=== PATIENT | female | born 1955 | race Caucasian/White ===

== ENCOUNTER 2020-06-27 06:10 | Day surgery (SDC) | payer OTHER ==
[2020-06-19 12:02] VITALS: BMI 20.9
[2020-06-27] MEDS ORDERED: BACITRACIN 15 GM TUBE TOPICAL OINTMENT ONE (07:19)
[2020-06-27] MEDS ORDERED: EPINEPHrine/PF 1 MG/1 ML (1:1,000) AMPULE ONE ×2 (07:19→08:18)
[2020-06-27] MEDS ORDERED: LIDOCAINE HCL 1%, 10 MG/ML (20ML VIAL) ONE ×2 (07:19→07:24)
[2020-06-27] MEDS ORDERED: GENTAMICIN SO4 80 MG/2 ML VIAL ONE (07:19)
[2020-06-27] MEDS ORDERED: ceFAZolin SODIUM 1 GM VIAL ONE (07:19)
[2020-06-27] MEDS ORDERED: LIDOCAINE 1%/EPI 1:100000 (20 ML MULTI DOSE VIAL) ONE ×2 (07:23→08:04)
[2020-06-27] MEDS ORDERED: PROPOFOL 20 ML ONE ×5 (07:27→09:11)
[2020-06-27] MEDS ORDERED: ROCURONIUM BROMIDE 50 MG/5 ML VIAL ONE (07:28)
[2020-06-27] MEDS ORDERED: MIDAZOLAM HCL 2 MG/2 ML SINGLE DOSE VIAL ONE (07:28)
[2020-06-27] MEDS ORDERED: LIDOCAINE 1%/EPI 1:100000 (50 ML MULTI DOSE VIAL) NR ONE (08:26)
[2020-06-27] MEDS ORDERED: EPINEPHrine/PF 1 MG/1 ML (1:1,000) AMPULE IM ONE ×2 (09:01)
[2020-06-27] MEDS ORDERED: LIDOCAINE HCL 1%, 10 MG/ML (20ML VIAL) INF ONE (09:01)
[2020-06-27] MEDS ORDERED: NEOSTIGMINE METHYLSULFATE 0.5 MG/ML - 10 ML MDV ONE (09:07)
[2020-06-27] MEDS ORDERED: ONDANSETRON 4 MG/2 ML VIAL ONE (09:39)
--- NOTE | 2020-06-27 09:40 | OP ---
Operative Note - Note: Operative Date: 06/27/20 Pre-Operative Diagnosis: left breast cancer with asymmetry of breast s/p lumpectomy Operation: Bilateral breast reconstruction with implants and subcutaneous tissue transfer from abdomen and flanks Post-Operative Diagnosis: Same as Pre-op Surgeon: Adithya Natarajan Drug Counselor: Meagan Mera Anesthesiologist/CLASSROOM AIDE: Andrae Díaz Anesthesia: General, Local Estimated Blood Loss (mls): 20 Fluid Volume Replaced (mls): 900 Operative Report Dictated: Yes
[2020-06-27] MEDS ORDERED: ONDANSETRON 4 MG/2 ML VIAL IVPUSH PRN (09:41)
[2020-06-27] MEDS ORDERED: oxyCODONE HCL 5 MG TABLET PO PRN (09:41)
--- NOTE | 2020-06-27 09:41 | SURG ---
Surgery Automotive Welder Note Automotive Welder: Meagan Mera PA-C Date of Service: 06/27/20 Diagnosis: left breast cancer with asymmetry of breast s/p lumpectomy Procedure: Bilateral breast reconstruction with implants and subcutaneous tissue transfer from abdomen and flank I was present for the entirety of the operative procedure. For further detail, please refer to operative report. Visit type - Case Type Case Type: Scheduled - Emergency Emergency Visit: No - New patient This patient is new to me today: Yes Date on this admission: 06/27/20
[2020-06-27] MEDS ORDERED: LACTATED RINGERS SOLUTION 1,000 ML IV SCH (09:45)
[2020-06-27 11:25] VITALS: TEMP 98.2
[2020-06-27 13:47] VITALS: BP 128/59; PULSE 66
--- NOTE | 2020-06-27 17:19 | OP ---
DATE OF OPERATION: 06/27/2020 SURGEON: Chasity Natarajan MD. DRAW FURNACE TENDER: AJAY Costello. PREOPERATIVE DIAGNOSIS: 1. 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 2. Asymmetry of reconstructed chest wall. 3. Mechanical complication of prior surgery. POSTOPERATIVE DIAGNOSIS: 1. 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 2. Asymmetry of reconstructed chest wall. 3. Mechanical complication of prior surgery. PROCEDURE: 1. Bilateral breast reconstruction with other technique, 19217-80. 2. Insertion of right breast implant for reconstructive purposes. 3. Insertion of left breast implant for reconstruction. OPERATIVE INDICATION: The patient is a woman who underwent mastectomy prior to this incident had presented previously with gross asymmetry of the reconstructed chest wall. The patient required the above procedures for symmetry and reconstruction of her breasts. The risks and benefits of surgical versus nonsurgical alternatives as well as well as material complications were described to the patient on multiple occasions including no surgery. She agreed to the planned procedure. All questions were asked and answered today in the holding area, where she was marked in the standing position for outline of the procedure. OPERATIVE PROCEDURE IN DETAIL: Patient was taken to the operating room, and after induction of general anesthesia in the supine position, both arms were extended and padded, Venodyne boots were placed. Then the markings confirmed both on the chest wall and the abdominal wall for harvest of reconstructed tissue. Once prepping and draping and timeout had occurred, attention was turned to the breasts themselves. The previous scar in the left breast from mastectomy was injected with 1% local lidocaine anesthesia with 1:100,000 epinephrine and the incisions were planned insertion of silicone breast implant through an inframammary approach was measured out and marked. These were also injected with 1% local lidocaine anesthesia with 1:100,000 epinephrine. Once this was accomplished, attention was turned to the left breast. Anesthesia was made down to the skin and subcutaneous tissue in the inframammary incision. This was then carried through the subcutaneous tissues down to the underlying chest wall. Dissection was then carried out superiorly along the chest wall in the subpectoral space elevating the pectoralis major muscles to accept a new device in the subpectoral plane. Hemostasis was meticulously obtained and the dissection was carried up to the 2nd rib superiorly to the anterior axillary line and down to the inframammary fold, which was lowered. The prior history of radiation therapy caused deformity of the left breast implant. At this point, the breasts were temporized and attention turned to the abdominal wall. Donor site incisions were planned on the left and right aspects of the abdominal wall; after injection of local anesthesia, dissection was carried down through the skin and subcutaneous tissue down to underlying fascia. This was carried along the anterior rectus fascia superiorly and laterally over the external oblique fascia, harvesting reconstructed tissue for purposes of symmetry and contour. This tissue which had been harvested was transferred to the back table, washed, cleansed and prepared for reconstruction. Attention was then turned back to the right breast; the exact same procedure as carried out on the right breast by making the inframammary incision, developing a subpectoral pocket and creating space for reconstruction. At this point, an implant was chosen after previous consultation with the patient. At this point, a Sientra smooth round moderate plus profile implant style 107 of 355 mL was placed into the right breast pocket. Good shape and contour was seen, and then attention was turned to the opposite left breast. The same implant was chosen for the left breast and also placed into the subpectoral pocket after achieving hemostasis on both sides. The implant and pocket were copiously irrigated with triple antibiotic solution and Betadine dissection. Good shape and contour were seen, although still asymmetry was noted. At this point, the reconstructed tissue which was harvested was transferred to the right and left breast, and the left breast and all aspects of the medial, superior, central, lateral, and inferior portions of the tissue were reconstructed with the tissue. Increased shape and contour was seen, and tissue was then transferred to the right breast in the medial and superior areas of the breast for reconstruction. Good symmetry was seen in sitting position once this tissue was placed, and attention was turned to the closure. The inframammary incisions were closed with interrupted 3-0 PDS suture in the deep fascia, 3-0 in the deep dermal fashion, and 4-0 Biosyn in a subcuticular fashion. This was carried out symmetrically on both sides. The tissue which had been placed through the transverse incision for the mastectomy scar was closed with interrupted sutures in the donor area. The donor area on the abdominal wall was closed with interrupted and running sutures for closure, Dermabond and Steri-Strip dressings were placed over all wounds. The patient was dressed in a Surgi-Bra with compressive dressing. She tolerated procedure well. She was awakened, extubated, transferred to recovery room in satisfactory condition. CHASITY NATARAJAN M.D. NURA/[id number]
== END 2020-06-27 13:30 | disposition home or self-care (01) ==
LOC: FASU 06:10
PROVIDERS: ATTEND Plastic Surgery
PROC: 0HRV07Z Replacement of Bilateral Breast with Autologous Tissue Substitute, Open Approach (ICD-10-PCS; principal; 2020-06-27 07:38)
PROC: 0HRV0JZ Replacement of Bilateral Breast with Synthetic Substitute, Open Approach (ICD-10-PCS; 2020-06-27 07:38)
DX: Z95.4 Presence of other heart-valve replacement (principal); Z90.13 Acquired absence of bilateral breasts and nipples; N65.1 Disproportion of reconstructed breast; T81.9XXA Unspecified complication of procedure, initial encounter; Y83.8 Other surgical procedures as the cause of abnormal reaction of the patient, or of later complication, without mention of misadventure at the time of the procedure; Y92.89 Other specified places as the place of occurrence of the external cause
CPT/HCPCS: 94760

== ENCOUNTER 2020-12-05 05:52 | Day surgery (SDC) | payer SELFPAY ==
[2020-11-28 12:05] VITALS: BMI 21.7
[2020-12-05] MEDS ORDERED: LIDOCAINE 1%/EPI 1:100000 (20 ML MULTI DOSE VIAL) ONE ×2 (07:45→07:52)
[2020-12-05] MEDS ORDERED: PROPOFOL 20 ML ONE ×3 (07:50→08:52)
[2020-12-05] MEDS ORDERED: MIDAZOLAM HCL 2 MG/2 ML SINGLE DOSE VIAL ONE (07:50)
[2020-12-05] MEDS ORDERED: SUCCINYLCHOLINE CHLORIDE 200 MG/10 ML SYRINGE ONE (07:51)
[2020-12-05] MEDS ORDERED: ROCURONIUM BROMIDE 50 MG/5 ML SYRINGE ONE ×2 (07:51→09:57)
[2020-12-05] MEDS ORDERED: EPHEDRINE SULFATE/0.9% NACL/PF 50 MG/10 ML SYRINGE NR ONE (08:50)
[2020-12-05] MEDS ORDERED: BSS (NA/CA/MG/K) BALANCED SALT SOLUTION OPHTH SOLN 15 ML BOTTLE ONE (09:09)
[2020-12-05] MEDS ORDERED: BACITRACIN 3.5 GM OPTHALMIC OINT TUBE ONE (09:15)
[2020-12-05] MEDS ORDERED: MINERAL OIL 25 ML OIL ONE ×2 (10:22→10:24)
[2020-12-05] MEDS ORDERED: NEOSTIGMINE METHYLSULFATE 0.5 MG/1 ML - 10 ML MDV ONE ×2 (10:42→10:43)
[2020-12-05] MEDS ORDERED: ONDANSETRON 4 MG/2 ML VIAL IVPUSH PRN (11:06)
[2020-12-05] MEDS ORDERED: oxyCODONE HCL 5 MG TABLET PO PRN (11:06)
[2020-12-05] MEDS ORDERED: PROMETHAZINE HCL 25 MG/1 ML VIAL IVPUSH PRN (11:06)
[2020-12-05] MEDS ORDERED: LACTATED RINGERS SOLUTION 1,000 ML IV SCH (11:15)
[2020-12-05 11:43] VITALS: TEMP 98.7
[2020-12-05] MEDS ORDERED: ACETAMINOPHEN 325 MG TABLET (FP) ONE (12:44)
[2020-12-05 13:51] VITALS: BP 132/74; PULSE 92
== END 2020-12-05 13:30 | disposition home or self-care (01) ==
LOC: FASU 05:52
PROVIDERS: ATTEND Plastic Surgery
CPT/HCPCS: 94760